=== PATIENT | female | born 1995 | race African-American/Black ===

== ENCOUNTER 2019-07-20 12:52 | Inpatient (IN) | payer SELFPAY ==
[~2019-07-20] VITALS: Ht 160 cm; Wt 55.7 kg
[2019-07-20 17:41] LABS: Urine Bacteria NONE SEEN /hpf (None Seen); Urine Blood Negative /uL (Negative); Urine Mucus FEW (None Seen); Urine Specific Gravity 1.023 (1.001-1.035); Urine WBC 1 /hpf (0 - 5)
[2019-07-20] MEDS ORDERED: SODIUM CHLORIDE 0.9% 1,000 ML IVB ONE (19:12)
[2019-07-20 20:02] LABS: Albumin 3.7 g/dL (3.4-5.0); Calcium 8.6 mg/dL (8.5-10.1); Potassium 3.8 mmol/L (3.5-5.1)
[2019-07-20 20:04] LABS: Basophils # (auto) 0 uL; Basophils % (auto) 0.4 % (0.0-2.0); Eosinophils # (auto) 0.1 uL; Hematocrit 42.1 % (36.0-46.0); Hemoglobin 14.5 g/dL (12.2-16.2); Lymphocytes % (auto) 24.9 % (10.0-50.0); Mean Corpuscular Hemoglobin 30.4 pg (28.0-32.0); Mean Corpuscular Hgb Conc. 34.5 g/dL (32.0-36.0); Mean Corpuscular Volume 88.2 fL (80.0-100.0); Monocytes # (auto) 0.6 uL; Monocytes % (auto) 7.8 % (0.0-12.0); Neutrophils # (auto) 5.3 uL; Neutrophils % (auto) 65.9 % (37.0-80.0); Nucleated Red Blood Cells % 0.1 %; Platelet Count (auto) 323 10^3/uL (140-450); Red Blood Cells 4.78 10^6/uL (4.0-5.20); Red Cell Distribution Width 12.8 % (11.8-14.3); White Blood Cell 8.1 10^3/uL (4.4-10.8)
[2019-07-20 20:05] LABS: BUN/Creatinine Ratio 17.1; Bilirubin, Total 0.5 mg/dL (0.2-1.0); Total Protein 7.6 g/dL (6.4-8.2)
[2019-07-20 20:06] LABS: INR 0.93 (0.9-1.15); Partial Thromboplastin Time 26.3 sec (23.64-32.05)
[2019-07-20] MEDS ORDERED: fentaNYL CITRATE 100 MCG/2 ML VL ONE (20:34)
[2019-07-20] MEDS ORDERED: MEPERIDINE HCL (50 MG/ML) 1 ML VIAL ONE (20:35)
[2019-07-20] MEDS ORDERED: ceFAZolin 1GM/50ML 50 ML IV ONE (20:35)
[2019-07-20] MEDS ORDERED: MIDAZOLAM HCL 1MG/1ML-2 ML VIAL ONE (20:35)
[2019-07-20] MEDS ORDERED: DexAMETHasone SOD PHOS 10MG/1ML VIAL INJ ONE (20:57)
[2019-07-20] MEDS ORDERED: KETOROLAC TROMETH 30 MG/ML 1ML VIAL ONE (20:57)
[2019-07-20] MEDS ORDERED: ONDANSETRON HCL 4 MG/2 ML VIAL ONE (20:57)
[2019-07-20] MEDS ORDERED: PROPOFOL 10 MG/ML 20 ML IV ONE (20:57)
[2019-07-20] MEDS ORDERED: KETOROLAC TROMETH 30 MG/ML 1ML VIAL IV ONE (21:00)
[2019-07-20] MEDS ORDERED: ONDANSETRON HCL 4 MG/2 ML VIAL IV PRN ×3 (21:00→21:30)
[2019-07-20] MEDS ORDERED: ePHEDrine SULFATE 50 MG/ML AMP IV PRN (21:00)
[2019-07-20] MEDS ORDERED: LABETALOL HCL 5 MG/ML 4ML SYRINGE IV PRN (21:00)
[2019-07-20] MEDS ORDERED: METOCLOPRAMIDE HCL 5MG/ml INJ 2ml VIAL IV PRN (21:00)
[2019-07-20] MEDS ORDERED: MORPHINE SULFATE 4 MG/ML SYR/VIAL IV PRN (21:00)
[2019-07-20] MEDS ORDERED: MIDAZOLAM HCL 1MG/1ML-2 ML VIAL IV PRN (21:00)
[2019-07-20] MEDS ORDERED: GLYCOPYRROLATE 0.2 MG/ML 1ML VIAL ONE (21:05)
[2019-07-20] MEDS ORDERED: NEOSTIGMINE 1 MG/ML INJ (10mg/10ML VIAL) ONE (21:05)
[2019-07-20] MEDS: ceFAZolin 1GM/50ML 50 ML IV SCH (21:30)
[2019-07-20] MEDS ORDERED: ACETAMINOPHEN IV 100 ML IV ONE (21:30)
[2019-07-20] MEDS: HYDROmorphone HCL 2 MG/ML VL IV PRN ×2 (21:56→22:06)
[2019-07-20 22:30] VITALS: BP 100/67
--- NOTE | 2019-07-20 22:30 | NUR ---
MS admit from PACU CHELI RODARTE admitted to tele/MS after SBAR received. Patient oriented to ESEQUIEL OCHOA, primary RN, unit, room, bed, and unit policies regarding patient care and visiting hours. Boyfriend at bedside. Patient weighed by bedscale and encouraged to call if they need something. Bed locked in lowest position, side rails upx2, call light within reach. All questions and concerns addressed, patient verbalized understanding.
[2019-07-20 22:40] VITALS: BP 100/67
[2019-07-20] MEDS: MORPHINE SULF INJ 2 MG/ML SYRINGE 1ML IV PRN (22:51)
[2019-07-20] MEDS ORDERED: INFLUENZA QUAD 2019-2020 0.5ml SYRG IM ONE (23:30)
[2019-07-20] MEDS ORDERED: ACETAMINOPHEN IV 1000 MG/100ML (10MG/ML) IV ONE (23:45)
[2019-07-21] MEDS: LACTATED RINGER'S 1,000 ML IV SCH ×4 (03:00→22:14)
[2019-07-21 05:00] VITALS: BP 101/43
[2019-07-21] MEDS: ceFAZolin 1GM/50ML 50 ML IV SCH ×2 (05:36→14:54)
[2019-07-21] MEDS: MORPHINE SULF INJ 2 MG/ML SYRINGE 1ML IV PRN (05:37)
[2019-07-21 06:45] LABS: Basophils # (auto) 0 uL; Basophils % (auto) 0.3 % (0.0-2.0); Eosinophils # (auto) 0 uL; Hematocrit 39.6 % (36.0-46.0); Hemoglobin 13.9 g/dL (12.2-16.2); Lymphocytes # (auto) 0.6 uL; Lymphocytes % (auto) 5.2 % (10.0-50.0); Mean Corpuscular Hemoglobin 30.4 pg (28.0-32.0); Mean Corpuscular Hgb Conc. 35.2 g/dL (32.0-36.0); Mean Corpuscular Volume 86.3 fL (80.0-100.0); Monocytes # (auto) 0.2 uL; Monocytes % (auto) 1.4 % (0.0-12.0); Neutrophils # (auto) 10.5 uL; Neutrophils % (auto) 93.1 % (37.0-80.0); Platelet Count (auto) 294 10^3/uL (140-450); Red Blood Cells 4.58 10^6/uL (4.0-5.20); Red Cell Distribution Width 12.2 % (11.8-14.3); White Blood Cell 11.3 10^3/uL (4.4-10.8)
--- NOTE | 2019-07-21 07:35 | NUR ---
was at bedside - Dr. Lazo Orders received and read back to verify.
--- NOTE | 2019-07-21 08:00 | NUR ---
Morning note Patient resting in bed with even and unlabored respirations, no distress noted. Instructed patient on POC, fall precautions and to call for assistance as needed. Patient verbalized understanding. Fall precautions in place with bed in lowest locked position, x2 side rails up and call light within reach. Dressing to the lower abdomen is clean, dry and intact. Will continue to monitor q1hr & PRN.
[2019-07-21 09:00] VITALS: BP 99/67
--- NOTE | 2019-07-21 10:00 | NUR ---
Patient ambulating with steady gait no distress noted.
[2019-07-21] MEDS: HYDROcodone-ACET 5/325MG TAB PO PRN ×2 (10:46→14:55)
[2019-07-21] MEDS: DOCUSATE SOD 100 MG CAP PO SCH ×2 (10:46→22:13)
[2019-07-21 13:00] VITALS: BP_SYST 132; BP_SYST 99; BP_DIAS 49; BP_DIAS 57
--- NOTE | 2019-07-21 13:15 | NUR ---
Garces catheter removed per MD's order Garces catheter removed with clean technique after deflation of catheter balloon. Patient tolerated well. 500ml of clear yellow urine emptied from catheter bag.
[2019-07-21] MEDS: SIMETHICONE 80 MG CHEWABLE TABLET PO SCH ×2 (15:00→22:13)
--- NOTE | 2019-07-21 15:40 | NUR ---
Patient ambulating with steady gait no distress noted.
[2019-07-21 17:00] VITALS: BP 102/62
--- NOTE | 2019-07-21 17:45 | NUR ---
Patient ambulating with steady gait no distress noted.
--- NOTE | 2019-07-21 19:30 | NUR ---
Care endorsed to [facility] [place]. Patient resting in bed with even and unlabored respirations, no distress noted. Call light within reach. Dressing is clean, and dry.
--- NOTE | 2019-07-21 19:59 | NUR ---
DRESSING CHANGE DRESSING TO PATIENT'S LOWER ABDOMEN IS PARTIALLY LIFTING OFF. DRESSING REMOVED AND SCANT DRIED DRAINAGE(OLD BLOOD) NOTED ON THE PREVIOUS DRESSING. INCISION IS WELL-APPROXIMATED, NO ACTIVE DRAINAGE OR REDNESS NOTED AT INCISION SITE. STEPAN ARE INTACT, NO WARMTH OR TENDERNESS NOTED AT SITE. CLEANSED SITE WITH NS AND PATTED DRY WITH STERILE GAUZE, PRIMAPORE DRESSING REPLACED. PATIENT TOLERATED WELL, DENIES PAIN AT THE INCISION SITE.
--- NOTE | 2019-07-21 20:00 | NUR ---
AMBULATION AND INCENTIVE SPIROMETRY PATIENT IS AWAKE AND ALERT X4, SITTING UP IN BED WITH NO S/S OF DISTRESS NOTED. PATIENT REPORTS AMBULATION TODAY, TOLERATING WELL. ENCOURAGED PATIENT TO CONTINUE TO GET UP OOB AND AMBULATE. INSTRUCTED PATIENT ON THE IMPORTANCE OF AMBULATION AFTER SURGERY, SHE VERBALIZED UNDERSTANDING. INSTRUCTED PATIENT ON THE IMPORTANCE OF INCENTIVE SPIROMETRY EXERCISES AT LEAST 10X/HOUR WHILE AWAKE TO PREVENT POST-OP PNEUMONIA/COMPLICATIONS, SHE VERBALIZED UNDERSTANDING. PATIENT PERFORMED I.S. EXERCISES CORRECTLY 10X IN FRONT OF MYSELF. PATIENT REPORTS PASSING GAS TODAY, DENIES HAVING A BOWEL MOVEMENT. BOWEL SOUNDS ARE ACTIVE AT THIS TIME. PATIENT STATES SHE TOLERATED HER CLEAR LIQUID DINNER WELL, DENIES N/V/ABD PAIN.
[2019-07-21 22:00] VITALS: BP 105/73
--- NOTE | 2019-07-22 05:13 | NUR ---
RECEIVED CALL FROM REGARDING PATIENT THIS AM, UPDATED HER ON PATIENT STATUS. REPORTED PATIENT'S TEMPERATURE OVERNIGHT OF 99.2F ORAL. PATIENT STILL UNABLE TO HAVE BOWEL MOVEMENT, POSITIVE FLATUS. NEW ORDERS RECEIVED TO SALINE LOCK PATIENT AND ADVANCE TO REGULAR DIET, ORDERS READ BACK AND VERIFIED. PER , TO COME IN TODAY TO SEE PATIENT. POSSIBLE DISCHARGE LATER TODAY OR TOMORROW, CONTINUE TO MONITOR FOR FEVERS. WILL ENDORSE TO DAY SHIFT RN.
[2019-07-22 05:26] VITALS: BP 101/49
[2019-07-22] MEDS: SIMETHICONE 80 MG CHEWABLE TABLET PO SCH ×3 (05:49→23:36)
--- NOTE | 2019-07-22 06:45 | NUR ---
IV removal IV DC'd from right hand with clean sterile technique, catheter fully intact. Pressure dressing applied to site. Patient tolerated well.
--- NOTE | 2019-07-22 06:50 | NUR ---
DRESSING TO PATIENT'S LOWER ABDOMEN REMAINS C/D/I. PATIENT REPORTS NO BOWEL MOVEMENT OVERNIGHT. PATIENT RESTING WITH NO S/S OF DISTRESS NOTED. IV NOW SALINE LOCKED.
--- NOTE | 2019-07-22 07:22 | NUR ---
Opening Shift Note: Assumed care of patient, asleep in bed. No S/S of distress/SOB or pain. Bed in lowest locked position, side rails up x 2, call light within reach. Will instruct patient on POC and will continue to monitor for changes Q1hr and PRN.
[2019-07-22 09:02] VITALS: BP 109/56
[2019-07-22] MEDS: DOCUSATE SOD 100 MG CAP PO SCH ×2 (09:56→23:35)
--- NOTE | 2019-07-22 12:20 | NUR ---
Per Charge nurse Mert: Dr Gerard notified of patients most recent HCG level. Dr Gerard notified that progesterone test is a send out.
[2019-07-22 13:08] VITALS: BP 102/55
[2019-07-22 16:29] VITALS: BP 93/43
--- NOTE | 2019-07-22 17:53 | NUR ---
Social service consult placed. Patient states he has no one at home to care for him this weekend. Doctor Finesse notified.
--- NOTE | 2019-07-22 19:30 | NUR ---
Opening Shift Note Assumed care of patient, awake and alert. No S/S of distress/SOB, and pt denies pain. Boyfriend present. Both instructed on POC and to call for assist PRN while awaiting completion of discharge process. This RN will continue to monitor for changes Q1hr and PRN. Bed low and locked. Call light within reach.
[2019-07-22 22:15] VITALS: BP 124/72
[2019-07-22 22:33] VITALS: BP 124/72
--- NOTE | 2019-07-22 23:40 | NUR ---
Pt amb. off unit to private car with boyfriend accompanying. PIV dc'd without diff. in entirety; pt tristen. well. Pt showered before leaving and incision cont w/o erythema, bleeding, edema, or drainage. Wound edges approximated well. Pt denies pain. Discharge teaching completed. Pt and boyfriend state that pt has appt set already for Wed. with Dr. Lazo. Discharge teaching done with both present and both VU. Pt condition stable. Pt insisted on amb instead of using w/c.
== END 2019-07-22 23:37 | disposition home or self-care (01) | DRG 817 ==
LOC: ER 12:55 → WEST WING 22:45
PROVIDERS: ADMIT Obstetrics & Gynecology; ATTEND Obstetrics & Gynecology
PROC: 0UC Female Reproductive System, Extirpation (ICD-10-PCS; 2019-07-20)
PROC: 0UB10ZZ Excision of Left Ovary, Open Approach (ICD-10-PCS; principal; 2019-07-20 20:31)
DX: O00.80 Other ectopic pregnancy without intrauterine pregnancy (principal); K66.1 Hemoperitoneum; N83.292 Other ovarian cyst, left side; O00.90 Unspecified ectopic pregnancy without intrauterine pregnancy
CPT/HCPCS: 36415; 76801; 80053; 81001; 84144; 84702; 85025; 85610; 85730; 86850; 86900; 86901; 94761; 96374; G0378; J0131; J0690; J1100; J1885; J2250; J2405; J2704

== ENCOUNTER 2019-07-23 11:47 | Emergency (ER) | payer SELFPAY ==
[~2019-07-23] VITALS: Ht 160 cm; Wt 59.0 kg
[2019-07-23] MEDS ORDERED: SODIUM CHLORIDE 0.9% 1,000 ML IVB ONE (12:02)
[2019-07-23 12:48] LABS: Basophils # (auto) 0.1 uL; Eosinophils # (auto) 0.1 uL; Eosinophils % (auto) 1.6 % (0.0-7.0); Hematocrit 40.4 % (36.0-46.0); Hemoglobin 13.8 g/dL (12.2-16.2); Lymphocytes # (auto) 2.3 uL; Lymphocytes % (auto) 27.1 % (10.0-50.0); Mean Corpuscular Hemoglobin 30.4 pg (28.0-32.0); Mean Corpuscular Hgb Conc. 34.1 g/dL (32.0-36.0); Mean Corpuscular Volume 89.3 fL (80.0-100.0); Monocytes # (auto) 1.1 uL; Neutrophils # (auto) 4.8 uL; Neutrophils % (auto) 57.3 % (37.0-80.0); Platelet Count (auto) 251 10^3/uL (140-450); Red Blood Cells 4.52 10^6/uL (4.0-5.20); Red Cell Distribution Width 12.2 % (11.8-14.3); White Blood Cell 8.4 10^3/uL (4.4-10.8)
[2019-07-23 13:11] LABS: Albumin 3.4 g/dL (3.4-5.0); BUN/Creatinine Ratio 14.1; Potassium 4.2 mmol/L (3.5-5.1)
[2019-07-23 13:14] LABS: Bilirubin, Total 0.3 mg/dL (0.2-1.0); Total Protein 7.1 g/dL (6.4-8.2)
[2019-07-23] MEDS ORDERED: SODIUM CHLORIDE 0.9% 1,000 ML IV ONE (13:15)
[2019-07-23 13:21] LABS: INR 0.95 (0.9-1.15)
[2019-07-23 14:23] VITALS: BP 110/68
[2019-07-23 14:46] LABS: Urine Bacteria NONE SEEN /hpf (None Seen); Urine Blood 2+ /uL (Negative); Urine Specific Gravity 1.009 (1.001-1.035); Urine WBC 1 /hpf (0 - 5)
== END 2019-07-23 16:56 | disposition home or self-care (01) ==
LOC: ER 11:51
DX: O46.91 Antepartum hemorrhage, unspecified, first trimester (principal); Z3A.01 Less than 8 weeks gestation of pregnancy
CPT/HCPCS: 36415; 76801; 80053; 81001; 84702; 85025; 85610; 85730; 94761; 99284; J7030

== ENCOUNTER 2020-01-24 11:36 | Observation (INO) | payer MEDICAID ==
[~2020-01-24] VITALS: Ht 162.6 cm; Wt 93.4 kg
[2020-01-24 13:09] LABS: Basophils # (auto) 0 10 ^3/uL (0-0.2); Basophils % (auto) 0.5 % (0.0-2.0); Eosinophils # (auto) 0.1 10 ^3/uL (0-0.8); Eosinophils % (auto) 1.4 % (0.0-7.0); Hemoglobin 10.7 g/dL (12.2-16.2); Lymphocytes # (auto) 1.7 10 ^3/uL (0.4-5.4); Lymphocytes % (auto) 19.6 % (10.0-50.0); Mean Corpuscular Hemoglobin 31.4 pg (28.0-32.0); Mean Corpuscular Hgb Conc. 34.4 g/dL (32.0-36.0); Mean Corpuscular Volume 91.2 fL (80.0-100.0); Monocytes # (auto) 0.9 10 ^3/uL (0-1.3); Monocytes % (auto) 9.9 % (0.0-12.0); Neutrophils # (auto) 6.1 10 ^3/uL (1.6-8.6); Neutrophils % (auto) 68.6 % (37.0-80.0); Nucleated Red Blood Cells % 0.1 %; Platelet Count (auto) 199 10^3/uL (140-450); Red Cell Distribution Width 12.9 % (11.8-14.3); White Blood Cell 8.9 10^3/uL (4.4-10.8)
[2020-01-24] MEDS ORDERED: LACTATED RINGER'S 1,000 ML IV SCH (13:15)
[2020-01-24] MEDS ORDERED: BETAMETHASONE ACET (6MG/ML) 5ML VIAL IM ONE (13:15)
[2020-01-24] MEDS ORDERED: hydrALAZINE HCL 20 MG/ML VL IV ONE (13:15)
[2020-01-24 13:19] LABS: Urine Bacteria NONE SEEN /hpf (None Seen); Urine Blood TRACE /uL (Negative); Urine Hyaline Cast FEW /lpf (0 - 2); Urine Mucus FEW (None Seen); Urine Specific Gravity 1.041 (1.001-1.035); Urine WBC 2 /hpf (0 - 5)
[2020-01-24 13:28] LABS: INR 0.89 (0.9-1.15); Partial Thromboplastin Time 25.4 sec (23.64-32.05)
[2020-01-24 13:32] LABS: Albumin 1.9 g/dL (3.4-5.0); Calcium 7.9 mg/dL (8.5-10.1); Potassium 4.1 mmol/L (3.5-5.1); Uric Acid 5.7 mg/dL (2.6-6.0)
[2020-01-24 13:36] LABS: Bilirubin, Total 0.2 mg/dL (0.2-1.0); Total Protein 5.9 g/dL (6.4-8.2)
[2020-01-24 13:40] LABS: Amphetamine Screen, Urine NEGATIVE (NEGATIVE); Barbiturate Scree,Urine NEGATIVE (NEGATIVE); Benzodiazephine Screen, Urine NEGATIVE (NEGATIVE); Cannabinoid Screen, Urine NEGATIVE (NEGATIVE); Cocaine Screen, Urine NEGATIVE (NEGATIVE); Opiate Scree,Urine NEGATIVE (NEGATIVE); Phencyclidine Screen, Urine NEGATIVE (NEGATIVE)
[2020-01-24] MEDS ORDERED: PREN-129 OR (13:41)
[2020-01-24] MEDS ORDERED: PREN27TA7 OR (13:41)
[2020-01-24] MEDS ORDERED: MAGNESIUM SULFATE 40MG/ML 1,000 ML IV SCH (13:57)
[2020-01-24] MEDS ORDERED: MAGNESIUM SULFATE 100 ML IV ONE (14:00)
[2020-01-24] MEDS ORDERED: AMPICILLIN SOD 2GM INJ 2 GM in SODIUM CHL 0.9% 100 ML IV ONE (14:00)
[2020-01-24] MEDS ORDERED: hydrALAZINE HCL 20 MG/ML VL ONE (17:53)
[2020-01-25] MEDS ORDERED: hydrALAZINE HCL 20 MG/ML VL IV ONE (10:00)
== END 2020-01-24 18:10 | disposition home or self-care (01) | DRG 566 ==
LOC: LDRP 11:36
PROVIDERS: ADMIT Obstetrics & Gynecology; ATTEND Obstetrics & Gynecology
DX: O13.3 Gestational [pregnancy-induced] hypertension without significant proteinuria, third trimester (principal); Z3A.30 30 weeks gestation of pregnancy
CPT/HCPCS: 36415; 51702; 59025; 76818; 80053; 80307; 81001; 81002; 84550; 85025; 85610; 85730; 86850; 86900; 86901; 96365; 96366; 96368; 96372; 96375; 96376; G0378; J0290; J0360; J0702; J3475; 96361; 96374